=== PATIENT | female | born 1965 | race Caucasian/White ===

== ENCOUNTER 2019-12-04 09:42 | Outpatient (CLI) | payer BC | END 2019-12-04 23:59 | disposition home or self-care (01) | LOC: CFH 09:42 | PROVIDERS: ATTEND Surgery | DX: N64.1 Fat necrosis of breast (principal); N63.14 Unspecified lump in the right breast, lower inner quadrant; R92.8 Other abnormal and inconclusive findings on diagnostic imaging of breast | CPT/HCPCS: 76642; 77065; G0279; 77063 ==